=== PATIENT | male | born 1975 | race Caucasian/White ===

== ENCOUNTER → 2016-10-28 | Outpatient (CLI) | payer BC ==
--- NOTE | 2016-10-29 06:31 | SPLIT NIGHT TECHNICIAN REPORT ---
[facility] Split Night Polysomnogram - Shellfish Harvester Report Study date: 10/28/2016 Referring Physician: Quentin BARRERA M.D. Name: KAYLA MARISELA Colindres Shellfish Harvester: MOLINA Lazaro. Date of : 1975 Height: 41 years, Height 5' 11" Sex: Male Weight: 334 lbs Age: 41 Neck Circum: 18 in BMI: Medications: 46.58 MULTI VIT, LOSARTAN 50 MG, ASPIRIN 81 MG, NEXIUM 20 MG Patient History 40 yr-old male here for a baseline/split study. He has a history of loud snoring, frequent awakenings, morning headaches, and sweating. His [place] sacle is 2. The test was started on room air. ETCO2 testing is included in this study. Room 3 Parameters Monitored NPSG: E1-M2, E2-M1, Fp1-M2, Fp2-M1, F3-M2, F4-M2, F4-M1, C3-M2, C4-M2, C4-M1, O1-M2, O2-M2, O2-M1, T3-M2, T4-M1, P3-M2, P4-M1, CHIN1, CHIN2, HR, EKG, Legs, PFLOW, SNOR, FLOW, CFLOW, Tidal Volume, THOR, ABDO, SpO2, PLTH, CPRESS, ETCO2 Wave, ETCO2, pH SLEEP SUMMARY DATA DIAGNOSTIC TREATMENT Lights Out: 10:48:29 PM 1:58:29 AM Lights On: 1:51:59 AM 5:48:59 AM Total Recording Time (TRT): 183.5 min. 230.5 min. Total Sleep Time (TST): 69.5 min. 149.0 min. NREM Time: 69.5 min. 110.0 min. REM Time: 0.0 min. 39.0 min. Sleep Period Time (SPT): 102.0 min. 190.0 min. Sleep Efficiency (SE): 38 % 65 % Sleep Latency: 54.5 min. 40.5 min. Arousal Index: 16.4 6.8 PAP Treatment Levels: 4, 6, 7, 9, 10 * Optimal Pressure(s) SLEEP STAGING DATA DIAGNOSTIC TREATMENT Duration (min) TST % Duration (min) TST % Stage Wake: 114.0 min. -- 81.5 min. -- WASO: 59.5 min. -- 41.0 min. -- NREM: 69.5 min. 100 % 110.0 min. 74 % Stage N1: 9.5 min. 14 % 17.5 min. 12 % Stage N2: 60.0 min. 86 % 85.5 min. 57 % Stage N3: 0.0 min. 0 % 7.0 min. 5 % REM: 0.0 min. 0 % 39.0 min. 26 % POSITIONAL DATA Event Count Index Event Count Index Supine: 2 76.9 10 10.6 Supine NREM: 2 76.9 4 4.9 Supine REM: N/A N/A 6 25 Non-Supine: 77 68.0 18 9.2 Non-Supine NREM: 77 68.0 14 9.8 Non-Supine REM: N/A N/A 4 7.3 AROUSAL SUMMARY DATA: Event Count Index Event Count Index Apnea Arousals: 2 19.0 0 0.4 Hypopnea Arousals: 5 4.3 3 1.2 Snore Arousals: 2 1.7 0 0.0 PLM Arousals: 2 1.7 3 1.2 Non-Specific Arousals: 8 6.9 5 2.0 Total Arousals: 19 16.4 17 6.8 MYOCLONUS (PLM) Event Count Index Event Count Index PLM: 17 14.7 57 23.0 PLM AROUSAL: 2 1.7 3 1.2 PLM W/O AROUSAL 17 14.7 54 21.7 PLM W/RESP EVENT 3 0.0 5 0.0 MYOCLONUS (PLM) Event Count Index Event Count Index LM: 0 25.0 37 14.9 LM AROUSAL: 0 0.0 2 0.8 LM W/O AROUSAL LM W/RESP EVENT LM NON SPECIFIC 32 27.6 78 31.4 HEART RATE DATA DIAGNOSTIC TREATMENT Sleep (bpm): 92 78 REM (bpm): N/A 90 NREM (bpm): 88 91 Tachycardia Count: 0 0 Tachycardia Duration: 0.00 0 Bradycardia Count: 0 0 Bradycardia Duration: 0.00 0 DIAGNOSTIC PORTION TREATMENT PORTION RESPIRATORY DATA Event Count Index Event Count Index AHI: -- 68.2 -- 9.7 RDI: -- 68.2 -- 11 Obstructive Apnea: 22 19.0 1 0.4 Central Apnea: 0 0.0 0 0.0 Mixed Apnea: 0 0.0 0 0.0 Hypopnea: 57 49.2 23 9.3 RERA: 0 0.0 4 1.6 Total Apneas: 22 19.0 1 0.4 RESPIRATORY DATA REM NREM SLEEP REM NREM SLEEP Supine Position: Obstructive Apneas: N/A 0 0 0 0 0 Central Apneas: N/A 0 0 0 0 0 Mixed Apneas: N/A 0 0 0 0 0 Hypopneas: N/A 2 2 6 3 9 RERA N/A 0 0 0 1 1 Total Supine Events: N/A 2 2 6 4 10 Supine AHI: N/A 76.9 76.9 25 4.9 10.6 Supine RDI: N/A 76.9 76.9 24.8 6.6 11.8 REM NREM SLEEP REM NREM SLEEP Non-Supine Position: Obstructive Apneas: N/A 22 22 1 0 1 Central Apneas: N/A 0 0 0 0 0 Mixed Apneas: N/A 0 0 0 0 0 Hypopneas: N/A 55 55 2 12 14 RERA N/A 0 0 1 2 3 Total Supine Events: N/A 77 77 4 14 18 Supine AHI: N/A 68.0 68.0 7.3 9.8 9.2 Supine RDI: N/A 68.0 68.0 9.8 11.4 11.0 OXYGEN DESTAURATION DATA: Event Count Index Event Count Index REM Desaturations: N/A N/A 15 23.1 NREM Desaturations: 121 104.5 21 11.5 SNORE DATA DIAGNOSTIC TREATMENT Snore Time: 11.9 2:38:59 AM Snore TST%: 9 8 Snore Arousal Count: 2 0 Snore Arousal Index: 1.7 0.0 Desaturation Event Summary: Minimum %SpO2 Event Count Mean/Min/Max Duration(sec.) Desaturation Index % Time In Bed > 90 174 24.8 / 4.0 / 60.0 43.3 59.3 86 - 90 94 21.8 / 4.0 / 59.8 39.4 35.3 81 - 85 6 21.4 / 4.8 / 42.5 17.2 5.2 76 - 80 0 N/A 0.0 0.1 71 - 75 0 N/A 0.0 0.1 66 - 70 0 N/A 0.0 0.0 61 - 65 0 N/A 0.0 0.0 56 - 60 0 N/A 0.0 0.0 51 - 55 0 N/A 0.0 0.0 < 50 0 N/A 0.0 0.0 OXYGEN SATURATION DATA DIAGNOSTIC TREATMENT SpO2 Mean Sleep: 88 % 91 % SpO2 Mean REM: N/A % 90 % SpO2 Mean NREM: 88 % 91 % SpO2 Minimum Sleep: 71 % 81 % SpO2 Minimum REM: N/A % 83 % SpO2 Minimum NREM: 71 % 81 % Time Below 90% (TST): 46.4 51.3 Time Below 88% (TST): 30.0 23.2 Total REM NREM Awake <50% 0.0 min. 0.0 min. 0.0 min. 0.0 min. 51 - 60% 0.0 min. 0.0 min. 0.0 min. 0.0 min. 61 - 70% 0.0 min. 0.0 min. 0.0 min. 0.0 min. 71 - 80% 0.9 min. 0.0 min. 0.9 min. 0.0 min. 81 - 90% 164.2 min. 19.5 min. 99.7 min. 44.9 min. 91 - 100% 240.9 min. 19.5 min. 78.9 min. 142.6 min. Average 91 90 90 92 Minimum SpO2 71 83 71 83 Desaturation Event Index 30.1 23.1 47.5 15.7 # Desat. Events below 89% 142 10 122 10 Time(%) with Saturation below 89% 19.8 3.0 15.5 1.4 Time(min.) with Saturation below 89% 80.6 12.1 62.8 5.6 Recording Shellfish Harvester Comments: Mr. Vazquez slept in the right, left, and supine positions. No cardiac arrhythmias or PLMs noted. No bruxism noted. Snoring was noted and scored as a 3-4 on a scale of 1 through 5. (0=no snoring, 5=snoring loud enough to be heard through a closed door or down the [address] way). At 1:50, he met specific Split-Night criteria during the diagnostic portion of this study. CPAP was initiated at +4 CMH2O and up-titrated to a level of +10 CMH2O, Cflex 2. A Simplus full face mask size medium from [employer] was used during titration. He awoke to use the restroom one time during the night. Mr. Vazquez stated that he slept a little better after he started the CPAP treatment. The final report will be interpreted and signed by a sleep physician. The completed physician report will then be placed in the patient medical record. Therapy Event: Therapy (cm H20) 0 4 6 7 9 10 Total Time at Pressure (min.) 183.5 51.6 15.7 72.4 30.2 60.7 TST at Pressure (min.) 69.5 7.6 15.7 44.4 29.2 52.2 # Periods 1 1 1 1 1 1 Sleep Onset (min.) 54.5 40.5 0.0 0.0 0.0 0.0 REM Onset (min.) N/A N/A N/A 15.8 16.4 0.0 Sleep Efficiency % 37 14 100 61 96 86 Wakefulness (%) 62.1 85.3 0.0 38.7 3.3 14.0 Wakefulness (min.) 114.0 44.0 0.0 28.0 1.0 8.5 NREM 1 (%) 5.2 11.6 0.0 10.4 3.3 4.9 NREM 1 (min.) 9.5 6.0 0.0 7.5 1.0 3.0 NREM 2 (%) 32.7 3.0 100.0 39.9 47.6 41.2 NREM 2 (min.) 60.0 1.6 15.7 28.9 14.4 25.0 NREM 3 (%) 0.0 0.0 0.0 0.0 0.0 11.5 NREM 3 (min.) 0.0 0.0 0.0 0.0 0.0 7.0 REM (%) 0.0 0.0 0.0 11.0 45.7 28.3 REM (min.) 0.0 0.0 0.0 8.0 13.8 17.2 # Arousals 19 4 0 9 0 4 Arousal Index 16.4 31.7 0.0 12.2 0.0 4.6 # Snore 525 2 206 152 100 5 Snore Index 453.2 15.8 789.8 205.4 205.6 5.7 AHI 68.2 39.6 11.5 9.5 14.4 2.3 AHI Supine 76.9 N/A N/A 5.7 14.4 0.0 AHI Non-Supine 68.0 39.6 11.5 12.9 N/A 2.3 NREM AHI 68.2 39.6 11.5 6.6 3.9 3.4 REM AHI N/A N/A N/A 22.5 26.1 0.0 RDI 68.2 47.5 11.5 12.2 14.4 3.4 # Obstructive 22 0 0 1 0 0 # Central Ap 0 0 0 0 0 0 # Mixed 0 0 0 0 0 0 # Hypopneas 57 5 3 6 7 2 RERAS 0 1 0 2 0 1 Total Respiratory Events 79 6 3 9 7 3 Time Below SpO2 89.00% (min.) 38.4 2.3 14.3 12.7 7.3 0.0 Mean NREM SpO2 (%) 88 89 87 90 91 94 Mean REM SpO2 (%) N/A N/A N/A 88 89 93 Mean Sleep SpO2 (%) 88 89 87 90 90 93 Min NREM SpO2 (%) 71 86 83 81 88 91 Min REM SpO2 (%) N/A N/A N/A 83 84 89 Position Supine (min.) 1.6 0.0 0.0 21.1 29.2 0.7 Position Non-supine (min.) 67.9 7.6 15.7 23.3 0.0 51.5 LM Index Sleep 39.7 190.2 88.2 41.9 12.3 11.5 LM Index NREM 39.7 190.2 88.2 42.9 7.8 6.9 LM Index REM N/A N/A N/A 37.5 17.4 20.9 Mean Heart Rate (bpm) 92 86 87 81 77 71 Min Heart Rate (bpm) 75 75 76 64 66 60
--- NOTE | 2016-11-15 16:50 | POLYSOMNOGRAPH REPORT ---
REFERRING PERSON: Dr. Edmond White. [employer] POL[employer]: Akua Crooks. Mr. Vazquez is a 41-year-old male sent for a baseline/split night sleep study. He has a history of loud snoring, frequent awakenings, morning headaches and sweating. His [place] sleepiness scale score on the evening of this study is 2. BMI is 46.58. Following the technical and digital specifications of the [place] [employer] (AASM) a standard diagnostic polysomnogram was performed monitoring EEG, EOG, EMG (chin and leg deviations), oxygen saturation, body position, digital video, respiratory effort and airflow. The sleep Stage and event scoring was based on the AASM Manual for the Scoring of Sleep and Associated Events 2007 edition. Apneas are defined as a drop in the peak thermal sensor excursion by >90% of baseline for at least 10 seconds. Hypopneas were scored using the 4% oxygen desaturation rule (4A-Medic[employer]) and a decrease in the nasal pressure excursions by >30% of baseline for at least 10 seconds. Respiratory effort-related arousal (RERA's) is defined as a sequence of breaths lasting at least 10 seconds characterized by increasing respiratory effort or flattening of the nasal pressure waveform leading to an arousal from sleep when the sequence of breaths does not meet criteria for an apnea or hypopnea. Apnea Hypopnea index (AHI) is defined as the number of apneas and hypopneas occurring in an hour of sleep. Respiratory disturbance index (RDI) is defined as the number of apneas, hypopneas, and RERA's occurring in an hour of sleep. Mr. Vazquez did in fact qualify for a split night sleep study. He was observed for 69.5 minutes of sleep time. During that time, he had 14% N1 sleep and 86% N2 sleep. There were 19 arousals from sleep. Seven of these arousals were due to respiratory events, 2 due to snoring, 2 due to periodic limb movements of sleep and 8 were nonspecific. Mean saturation during observation was 88% with desaturations with respiratory events to 71%. There were 17 periodic limb movements, 2 of which resulted in arousals. Pretreatment, this patient had 22 obstructive apneas, no central and no mixed apnea. Additionally, he had 57 hypopnea. His pretreatment apnea-hypopnea index was 68.2 consistent with severe sleep apnea. Therefore, at 01:50 a.m., this patient was started on CPAP therapy. He chose a medium [employer] Simplus full facemask for his titration. He was titrated from a CPAP pressure of 4 to a CPAP pressure of 10 over the remainder of the night. Increasing pressures were needed to prevent apneas, hypopneas and arousals. He was observed on a pressure of 10 for 52.2 minutes of sleep time. There were 17.2 minutes of REM sleep; however, this was non-supine REM. AHI was 2.3. RDI was 3.4 on this pressure. There were no saturations less than 89%. IMPRESSION AND PLAN: Successful split night sleep study in this patient with severe sleep apnea. I would recommend that this patient be started on CPAP at home with a pressure of 10. A download from his machine can be reviewed in 1 month both to check compliance as well as AHI and further pressure adjustments can occur at that time.
== END | disposition home or self-care (01) ==
LOC: C.NEUR 21:00
PROVIDERS: ATTEND Family Medicine
DX: E66.01 Morbid (severe) obesity due to excess calories (principal); R06.83 Snoring; G47.33 Obstructive sleep apnea (adult) (pediatric); G47.10 Hypersomnia, unspecified

== ENCOUNTER → 2017-03-30 | Outpatient (CLI) | payer BC ==
[~2017-03-30] MED LIST: GADAVIST IV PRN
--- NOTE | 2017-03-30 09:33 | DIAGNOSTIC IMAGING REPORT ---
MRI OF THE BRAIN WITHOUT AND WITH IV CONTRAST CLINICAL HISTORY: Headaches, dizziness, nausea, hypertension. COMPARISON STUDY: No previous studies for comparison. TECHNIQUE: MRI of the brain was performed from the vertex to the skull base utilizing various T1 and T2 weighted sequences. Following the IV administration of 15.5 mL of Gadavist contrast, additional enhanced images were obtained. FINDINGS: Sagittal T1, axial diffusion, proton density and T2 weighted axial, coronal FLAIR, and pre and post axial T1-weighted images were acquired. These were supplemented with post gadolinium coronal T1 weighted images. There is 3 mm of cerebellar tonsillar ectopia. No intra or extra-axial mass lesions are visualized. Axial diffusion-weighted images reveal no evidence of acute or subacute infarction. There is no evidence of ventricular dilatation. Proton density T2-weighted and FLAIR images reveal no significant intraparenchymal signal abnormalities. There are no abnormal flow voids. There is no evidence of pathologic enhancement. IMPRESSION: 1. Minimal (3 mm) cerebellar tonsillar ectopia 2. Otherwise normal MRI of the brain Electronically signed by: Santino Simon M.D. 03/30/2017 9:32 AM Dictated Date/Time: 03/30/2017 9:29 AM
== END | disposition home or self-care (01) ==
LOC: C.MRI 07:20
PROVIDERS: ATTEND Internal Medicine
DX: G44.59 Other complicated headache syndrome (principal)